=== PATIENT | female | born 1990 | race Caucasian/White ===

== ENCOUNTER 2016-08-10 08:53 | Day surgery (SDC) | payer OTHER ==
[2016-08-10] VITALS (7 sets, daily range): BP systolic 115–148; BP diastolic 47–90; PULSE 70–85; RESP 14–18; O2SAT 95–100
[~2016-08-10] VITALS: Ht 165.1 cm; Wt 101.6 kg
--- NOTE | 2016-08-10 08:07 | HP PRE OP ---
[address] [address] PREOPERATIVE HISTORY AND PHYSICAL PATIENT: MAGNUS DING : 1990 MR#: [id number] ADMIT: 08/10/2016 JOB ID: [id number] DATE OF SERVICE: 08/10/2016 IDENTIFICATION: The patient is a 26-year-old, AB2 woman. CHIEF COMPLAINT: First trimester missed . HISTORY OF PRESENT ILLNESS: This patient was originally referred by Dr. Arpit Joyce to my office in the setting of 1st trimester missed . A few ultrasounds have been accomplished without viability noted in the first trimester. Last one was on August 03, 2016, at which point, crown-rump length was consistent with 6 and 3/7 weeks, although there were no heart tones, and gestational sac size was consistent with 9 and 2/7 weeks, and with gestational age per menstrual dating, even further along. First-trimester demise was thus confirmed and Dr. Joyce and I spoke with the patient regarding options. She specifically requested suction D and C procedure to clear the uterus, and in this process as opposed to waiting for spontaneous miscarriage or stimulating miscarriage with agent such as Cytotec. She understood the pros and cons of each option. She has understood the risks of suction D and C including bleeding, infection, injury to the cervix or uterus, potential cervical or uterine wall perforation with internal or external bleeding, potential need for laparotomy if significant perforation complication was to occur, anesthetic risks, postoperative pain, et cetera. She has had all her questions answered, no guarantees have been stated or implied, and she has signed informed consent for surgery. In summary, then, the patient has been found to have first trimester missed for which she is requesting suction D and C, the reason for admission on August 10, 2016. PHYSICAL EXAMINATION: On admission, weight 223 pounds. Blood pressure 120/64. Neck no thyromegaly. Lungs clear auscultation and percussion. Heart regular in rate and rhythm. Abdomen increased abdominal wall thickness, no surgical scarring. Pelvic examination: Vulva, vagina, and cervix no obvious epithelial abnormality. Bimanual examination, uterus in the 9-10 week size range, very mildly tender with deep bimanual palpation. No obvious mass. DIAGNOSTIC DATA: Current CBC result pending at the time of this dictation. Note: Rh positive status. IMPRESSION: 1. First trimester missed , with admission for suction dilation and curettage, at patient's request. 2. Rh positive status. 3. Reproductive history--two possible miscarriages in 2005 and 2007, no tests at those times, yet unusual late periods. Note subsequent full-term delivery in 2011, then current 1st trimester missed to soon undergo dilation and curettage. 4. Loop electrosurgical excision procedure in 2011 for precancer cervical change and human papillomavirus, Pap test reportedly subsequently normal. 5. Increased weight. 6. Asthma, uses albuterol inhaler and QVAR on a p.r.n. basis, none during the past few months. 7. Prior methamphetamine and heroin use, clean x6 years, having undergone detox, and the patient reports that substance use is simply not an option. 8. Social history-- with 5-year-old biologic child and 10-year-old stepchild. 9. Anxiety, using Wellbutrin. 10. Prior Mirena intrauterine device use with infection/pain development requiring its removal plus antibiotics towards the end of 2015 or early 2016. 11. Medication allergies--allergies/intolerance a. Penicillin--hives. b. Codeine--nausea and vomiting. c. Erythromycin--gastrointestinal upset. 12. Family history of breast cancer (grandmother), ovarian/cervical cancer (who?), thyroid cancer/disease (who?). PLAN: The patient will be admitted to [facility] on August 10, 2016 on which day she will undergo suction D and C to clear the uterus of 1st trimester missed .
[~2016-08-10 08:53] MED LIST: ALBU8.5H2 INHALATION; BECL8.7A6 INHALATION; BUPR300T51 PO
[2016-08-10] MEDS ORDERED: Propofol 10,000 mCg/mL 20 mL Inj ONE (08:54)
[2016-08-10] MEDS ORDERED: Dexamethasone 4 mg/mL Inj ONE (08:54)
[2016-08-10] MEDS ORDERED: fentaNYL-PF 50 mCg/mL 2 mL Inj ONE ×2 (08:54→11:33)
[2016-08-10] MEDS ORDERED: Oxytocin 10 Unit/mL Inj ONE (08:54)
[2016-08-10] MEDS ORDERED: Ondansetron 2 mg/mL 2 mL Inj ONE (08:54)
[2016-08-10] MEDS: Lactated Ringer's 1,000 ML IV SCH ×2 (08:57→10:43)
[2016-08-10] MEDS ORDERED: oxyCODONE-Acetamin 5-325 mg Tablet PO PRN (10:45)
[2016-08-10] MEDS ORDERED: Ondansetron 2 mg/mL 2 mL Inj IVPUSH PRN ×2 (10:45→11:50)
[2016-08-10] MEDS ORDERED: MetoCLOpramide 5 mg/mL 2 mL Inj IVPUSH PRN ×2 (10:45→11:50)
[2016-08-10] MEDS ORDERED: HYDROmorphone 1 mg/mL Inj IVPUSH PRN ×2 (10:45→11:50)
[2016-08-10] MEDS ORDERED: Lactated Ringer's 1,000 ML IV ONE (11:29)
--- NOTE | 2016-08-10 11:29 | PCM.HPANE ---
Patient Data Date of Service: Aug 10, 2016 (1030) Surgeon Admitting Provider: Attending Provider:Chaparro Dunlap MD Primary Care Physician:Arpit Joyce MD Other Provider:Vance Wilson Anesthesia Reason for Visit 1ST Trimester Missed Ht/WT & BMI Height (Feet): 5 Height (Inches): 5.00 Weight (Kilograms): 101.6 Body Mass Index 37.00 Allergies Coded Allergies: Penicillins (Verified Adverse Reaction, Severe, Rash,Itching,, 03/02/16) azithromycin (Verified Adverse Reaction, Severe, Nausea,Vomiting, 03/02/16 ) codeine (Verified Adverse Reaction, Severe, Nausea,Vomiting, 03/02/16) Past Anesthesia History Anesthesia History: Denies:: Abnormal Airway, Anesthesia Reactions, Difficult Intubation, Fam Anesthesia Reaction Diabetes History Hx Diabetes?: No MRSA MRSA: Yes (low back 8 years ago) Medications Hypertension Medication: No Home Meds Incl Beta Prabha: No Reported Medications Bupropion ER (Wellbutrin XL)300 Mg Tab.er.21v823 Mg PO DAILY Ref 0 08/09/16 Beclomethasone Dipropionate (Qvar)8.7 Gm Aer.w.adap1 Puff INHALATION BID #8.7 GM 08/09/16 Albuterol HFA (Proair HFA)8.5 Gm Hfa.aer.ad2 Puffs INHALATION Q4H PRN For Shortness of Breath #1 INHALER 08/09/16 Discontinued Scripts Naproxen (Naprosyn)500 Mg [id number] Mg PO BID PRN For Pain #30 TABLET Prov:Teo Camacho MD 03/02/16 Doxycycline Monohyd 100 Mg [id number] Mg PO BID #20 CAPSULE Ref 0 Prov:Teo Camacho MD 03/02/16 Metronidazole (Flagyl)500 Mg [id number] Mg PO Q8H #30 TABLET Prov:Teo Camacho MD 03/02/16 History History of ENT Problems?: No HEENT History: Denies:: Abnormal Airway Cataracts Difficult Intubation Dysphagia Glaucoma Hearing Problem Sinus Problem TMJ Denture Type: None Teeth Condition: Within Normal Limits Missing Teeth Hx of Heart Problems?: No Cardiovascular History: Denies:: Abdominal Aortic Aneurism Atrial Fibrillation Cardiac Surgery Chest Pain Heart Murmur Hypertension Irregular Heartbeat Hx of Respiratory Problem?: Yes Respiratory History: Positive for:: Asthma Use of Inhalers / NEBS Denies:: COPD Emphysema Oxygen Administration Pneumonia Tuberculosis Use of C-PAP Machine (sleep study done, no cpap recommended) Hx Neurologic Problems?: No Neurological History: Denies:: Alzheimer's Disease Dementia Headaches Multiple Sclerosis Parkinson's Disease Seizures Hx of GI Problems?: No Hx of Problems?: No Genitourinary History: Positive for:: Kidney Stones (passed spontaneously "years ago") Denies:: Urinary Tract Infection Female Hx: Positive for:: Currently Denies:: Problems with Breasts? Skin History: Denies:: History Skin Disorders? Pressure Ulcers Hx Musculoskeletal Problems?: Yes Musculoskeletal History: Positive for:: Musculoskeletal Trauma (knee injury ) Denies:: Back Injury Fibromyalgia Joint Replacement Osteoarthritis Hx of Psycho/Social Problems?: Yes Psycho Social History: Positive for:: Anxiety Denies:: Hx Depression Hx Surgeries?: Yes (LEEP) Hx Any Other Health Problems?: Yes Other History: Positive for:: Cancer (LEEP for pre cervical ) Denies:: Thyroid Disease History Blood Transfusions: Positive for:: Accept Blood Products? Denies:: Blood Transfusions Hx Diabetes: No Hx Alcohol Use: NoHx Substance Use: No (hx of marijuana (not for last couple months)) Smoking Status: Never Smoker Have You Smoked inLast 12 mo: No Stop/Bang S-Snoring: Do You Snore Loudly: No T-Tired: feel tired, fatigued: No O-Obsered: Observed not breath: No P-Blood Pressure: treated: No B- Body Mass Index > 35 kg/m2: No A- Age over 50: No N- Neck Large Circumference: No G- Gender Male: No BLAIR Total Score: 0 BLAIR Risk Assessment: Low Risk, <3 Yes Risk Assessment Category Category 1A: Patient has history of documented sleep apnea, and HAS NOT received any narcotic, sedative or anesthesia administration during this stay. Category 1B: Patient has history of documented sleep apnea, and HAS received any narcotic , sedative or anesthesia administration during this stay Category 2: Patient has SUSPECTED Obstructive Sleep Apnea, and HAS received any narcotic , sedative or anesthesia administration during this stay. Category 3: Patient has SUSPECTED Obstructive Sleep Apnea and HAS NOT received narcotic, sedative or anesthesia administration during this stay. Category 4: Outpatient in Procedural Areas with known sleep apnea or who screen positive for High Risk via the STOP/BANG questionnaire. Exam Exam Vital Signs Vital Signs Date Time Temp Pulse Resp B/P Pulse Ox O2 Delivery O2 Flow Rate FiO2 08/10/16 09:14 37.0 72 16 116/66 98 Room Air General Appearance: Alert, Oriented X3, Cooperative HEENT/AIRWAY: MP 1 Lungs: Clear to Auscultation Heart: Exam Unremarkable Meds/Labs/Diagnostics Admission Meds Current Medications Lactated Ringer's (Lr) 1,000 ml @ 120 mls/hr Q8H20M IV Last administered on t 10:43; Start 08/10/16 at 05:00; Stop 08/10/16 at 13:19 Plan Impression Patient chart reviewed, patient interviewed and anesthestic plan with risks, benefits, and alternatives discussed, and informed consent obtained. NPO per Anesth. Guidelines: Yes ASA Physical Status: ASA2 Mod Systemic Disease Anesthetic Plan: GA Bene/Risks/Altern/Consents: Yes HP Complete Prior to Induction: Yes Severo Hicks MD Aug 10, 2016 11:29
--- NOTE | 2016-08-10 11:29 | PCM.ANEP1 ---
Post Anesthesia PACU Phase 1 Assessment Vital Signs 98, 13, 100%, 148/90, 36.7 Vital Signs Date Time Temp Pulse Resp B/P Pulse Ox O2 Delivery O2 Flow Rate FiO2 08/10/16 09:14 37.0 72 16 116/66 98 Room Air Anesthetic Administered: GA Level of Alertness: Awake, talking SIMPSON's with Equal Strength: Yes Pain: No Nausea or Vomiting: No CV Function & Hydration Stable: Yes Airway Device: none Oxygen Delivery: Room Air Lungs: Clear to Auscultation Dermatome Level: Full Sensation Summary uneventful GA PACU Phase 2 Assessment Complications: No Follow up Care: No Patient Instructions Provided: N/A Severo Hicks MD Aug 10, 2016 11:29
[2016-08-10] MEDS ORDERED: Lactated Ringer's 500 ML IV PRN (11:47)
[2016-08-10] MEDS ORDERED: Lactated Ringer's 1,000 ML IV SCH (11:47)
[2016-08-10] MEDS ORDERED: Phenylephrine 10,000 mCg/mL Inj IVPUSH PRN (11:50)
[2016-08-10] MEDS ORDERED: EPHEDrine Sulfate 50 mg/mL Inj IVPUSH PRN (11:50)
[2016-08-10] MEDS ORDERED: Dexamethasone 4 mg/mL Inj IVPUSH PRN (11:50)
[2016-08-10] MEDS ORDERED: fentaNYL-PF 50 mCg/mL 2 mL Inj IVPUSH PRN (11:50)
--- NOTE | 2016-08-10 23:01 | OP ---
[address] [address] OPERATIVE REPORT PATIENT: MAGNUS DING : 1990 MR#: [id number] ADMIT: 08/10/2016 JOB ID: [id number] DATE OF SURGERY: 08/10/2016 SURGEON: On the case: Chaparro Dunlap MD. ANESTHESIA: General. PREOPERATIVE DIAGNOSIS(ES): First trimester missed . POSTOPERATIVE DIAGNOSIS(ES): First trimester missed . PROCEDURE PERFORMED: Suction dilation and curettage. FINDINGS AT SURGERY: Uterus was mildly enlarged, sounding to 10 cm. Cervix was moderately soft, readily dilated up to 10 mm. A moderate to large amount of products of conception were recovered. Blood loss was in the 100 cc range. At procedure's close, only scant bleeding was occurring, and there was clean endometrial lining as demonstrated by suction and sharp curettage. It certainly is anticipated that patient will do well during the postoperative timeframe. PROCEDURE: The patient was placed in supine position on the operating table and general anesthesia was induced. She was then appropriately identified and prepped and draped in the usual sterile manner. She had been carefully positioned into the dorsal lithotomy position. A weighted speculum was then placed posteriorly against the vaginal wall and a tenaculum was then placed on the anterior cervical lip and another on the posterior cervical lip. Uterus was then sounded, followed by ready dilatation of the cervix up to 10 mm. A size 10 straight suction tip was then selected and suction curettage was then accomplished carefully and with return of products of conception. Pitocin infusion was provided to help contract the uterus during this process. Once no additional tissue was recovered, suction curette was removed and very gentle sharp curettage was accomplished with return of no additional tissue. Final suction curettage then removed blood and clots and the internal procedure was complete. Each tenaculum was removed from the cervix and uterus was massaged to help facilitate its contraction to help maintain scant blood loss only. Pressure was held on the tenaculum sites to help ensure that no bleeding would occur postoperatively focally, and then all instruments and sponges were removed from the cervix and vagina, and instrument and sponge counts were all found to be correct. The patient was carefully returned to supine position, awakened, and then taken to recovery room. ESTIMATED BLOOD LOSS: 100 cc. COMPLICATIONS: None. PROGNOSIS: Good for surgical recovery. MTDD
--- NOTE | 2016-08-11 13:42 | PATH ---
SURGICAL PATHOLOGY Attending Physician:Chaparro Dunlap M.D CASE STATUS: Signed Out PATIENT NAME: MAGNUS DING PID: [id number] : 1990 DATE COLLECTED:08/10/2016 22:47 SPECIMEN: Products of conception CLINICAL HISTORY: FIRST TRIMESTER MISSED 1). PRODUCTS OF CONCEPTION FINAL DIAGNOSIS: 1.PRODUCTS OF CONCEPTION: IMMATURE PLACENTAL TISSUE WITH AVASCULAR CHORIONIC VILLI ADMIXED WITH DECIDUAL TISSUE AND GRAVID ENDOMETRIUM. ICD10 O02.1 GROSS DESCRIPTION: The specimen is received in one formalin filled container labeled with the patient's name, sublabeled "products of conception" and consists of multiple portions of tissue which aggregate to 6.0 x 4.0 x 0.6 CM. No grossly recognizable parts are observed. Mandrel Press Hand sections are submitted in 5 cassettes. 08/11/2016 [facility] MICRO DESCRIPTION: See diagnosis. ICD-9 CODES: CPT CODES: 1: 13482 Electronically Signed Out Anil Vásquez MD [facility] [address], [place] [address] Technical component performed at [facility], [address] [place] [address] Ave[address], [place], [address]
== END 2016-08-10 23:59 | disposition home or self-care (01) ==
LOC: SAS 08:53
PROVIDERS: ATTEND Obstetrics & Gynecology
DX: O02.1 Missed abortion (principal); J45.909 Unspecified asthma, uncomplicated; F41.9 Anxiety disorder, unspecified; Z86.14 Personal history of Methicillin resistant Staphylococcus aureus infection
CPT/HCPCS: 59820; 88305; J1100; J1885; J2250; J2405; J2590; J3010; J7120